=== PATIENT | female | born 1940 | race Caucasian/White ===

== ENCOUNTER 2017-08-22 10:28 | Outpatient (CLI) | payer MEDICARE, OTHER ==
[~2017-08-22] VITALS: Ht 167.6 cm; Wt 85.7 kg
[2017-08-22] MEDS ORDERED: METOLAZONE2.5 MG PO (11:13)
[2017-08-22] MEDS ORDERED: GLIMEPIRIDE1 MG ORAL (11:13)
[2017-08-22] MEDS ORDERED: FUROSEMIDE40 MG/5 ML ORAL (11:13)
[2017-08-22] MEDS ORDERED: OMEPRAZOLE20 M2 ORAL (11:13)
[2017-08-22] MEDS ORDERED: MIRTAZAPINE15 M3 ORAL (11:14)
[2017-08-22] MEDS ORDERED: LISINOPRIL5 MG ORAL (11:14)
[2017-08-22] MEDS ORDERED: CALCIUM600 M1 PO (11:14)
[2017-08-22] MEDS ORDERED: KLOR-CON20 MEQ ORAL (11:14)
[2017-08-22] MEDS ORDERED: MIRAPEX0.5 MG PO (11:14)
[2017-08-22] MEDS ORDERED: VENLAFAXINE HCL75 MG ORAL (11:14)
[2017-08-22] MEDS ORDERED: VITAMIN D35000 UNI2 PO (11:14)
[2017-08-22 11:17] VITALS: BP 139/103
--- NOTE | 2017-08-22 11:19 | GI Initial Consult Note ---
Jacqueline Buchananh Don N.P. 08/22/17 1119: History of Present Illness General Date patient seen: Aug 22, 2017 Time patient seen: 11:07 Referring physician: CHATA Reason for Consultation: EGD/EUS Present Illness HPI 76 year old female patient referred by Dr. Dominguez for EGD/EUS. The patient has a history of dysphagia with solid foods, dx with achalasia 5 years ago. Hx of botox treatment in [place]. He currently is pending a Heller Mytomy and requires an EUS, thus patient presents here today. His last EGD was 2 months ago. History of colonic polyps. No signs of abuse or neglect. Patient is not fall risk. Denies any unintentional weight loss or changes in dietary habits. Home Meds Reported Medications Mirtazapine* (MIRTAZAPINE*) 15 Mg Tablet, 45 MG ORAL BEDTIME, TAB 08/22/17 Pramipexole (MIRAPEX) 0.5 Mg Tablet, 1.5 MG GT, TAB 08/22/17 Cholecalciferol (Vitamin D3) (VITAMIN D3) 5,000 Unit Tablet, 5000 UNIT PO, TAB 08/22/17 Lisinopril (LISINOPRIL*) 5 Mg Tablet, 10 MG ORAL DAILY, TAB 08/22/17 Calcium Carbonate (CALCIUM) 600 Mg Tablet, 600 MG PO, TAB 08/22/17 Venlafaxine Hcl* (VENLAFAXINE HCL*) 75 Mg Tablet, 150 MG ORAL THREE TIMES A DAY , TAB 08/22/17 Potassium Chloride (KLOR-CON) 20 Meq Packet, 60 MEQ ORAL DAILY, #30 PKT 0 Refills 08/22/17 Metolazone (METOLAZONE) 2.5 Mg Tablet, 2.5 MG PO, TAB 08/22/17 Furosemide (FUROSEMIDE) 40 Mg/5 Ml Solution, 40 MG ORAL DAILY, ML 08/22/17 Glimepiride* (GLIMEPIRIDE*) 1 Mg Tablet, 2 MG ORAL BEFORE BREAKFAST, TAB 08/22/17 Omeprazole (OMEPRAZOLE) 20 Mg Capsule.dr, 20 MG ORAL DAILY, CAP 08/22/17 Allergies: Coded Allergies: SULFA (SULFONAMIDE ANTIBIOTICS) (Unverified Allergy, Severe, 08/22/17) Patient History History Provided By: Patient, Medical Record PMH Narrative Parkinson's Disease Achalasia DM HTN COPD / Sleep Apnea with CPAP Depression GERD Past Surgical History: Hysterectomy + ovary removal Cholecystectomy tonsillectomy Family History Narrative Mother >> multiple myeloma. Daughter >> vaginal CA Social History: Reports: smoking - quit 8 years, alcohol use - over 20 years Review of Systems All Other Systems: negative except mentioned in HPI Physical Exam T 99.1 BP 139/103 HR 108 97 RA Height 5'6 Weight 189 lbs Sp02 EP Interpretation: reviewed, normal General Appearance: well appearing, no apparent distress, alert Head: normocephalic EENT: PERRL/EOMI, normal ENT inspection Neck: supple Respiratory: normal breath sounds, no respiratory distress Cardiovascular: normal rate Gastrointestinal: normal inspection, non tender, soft, normal bowel sounds, non -distended Rectal: deferred Genitourinary: no CVA tenderness Musculoskeletal: normal inspection, back normal Neurologic: normal inspection, alert, oriented x3, responsive Psychiatric: normal inspection, judgement/insight normal, memory normal Skin: normal inspection, normal color, no rash, warm/dry, palpation normal, well hydrated Lymphatic: normal inspection, no adenopathy GI: Plan Problems: (1) Dysphagia (2) Achalasia (3) GERD (gastroesophageal reflux disease) (4) HTN (hypertension) (5) Parkinson disease (6) Diabetes mellitus (7) Depressed (8) COPD (chronic obstructive pulmonary disease) (9) Sleep apnea Plan EGD/EUS to be schedule 08/30/16. - NPO @ DC day prior procedure explained. will consider adding colonoscopy to procedure. cont ppi Seen with Dr. Lomax. Thank you for this patient referral. MACHELLE LOMAX 08/22/17 1223: History of Present Illness Present Illness Home Meds Reported Medications Mirtazapine* (MIRTAZAPINE*) 15 Mg Tablet, 45 MG ORAL BEDTIME, TAB 08/22/17 Pramipexole (MIRAPEX) 0.5 Mg Tablet, 1.5 MG GT, TAB 08/22/17 Cholecalciferol (Vitamin D3) (VITAMIN D3) 5,000 Unit Tablet, 5000 UNIT PO, TAB 08/22/17 Lisinopril (LISINOPRIL*) 5 Mg Tablet, 10 MG ORAL DAILY, TAB 08/22/17 Calcium Carbonate (CALCIUM) 600 Mg Tablet, 600 MG PO, TAB 08/22/17 Venlafaxine Hcl* (VENLAFAXINE HCL*) 75 Mg Tablet, 150 MG ORAL THREE TIMES A DAY , TAB 08/22/17 Potassium Chloride (KLOR-CON) 20 Meq Packet, 60 MEQ ORAL DAILY, #30 PKT 0 Refills 08/22/17 Metolazone (METOLAZONE) 2.5 Mg Tablet, 2.5 MG PO, TAB 08/22/17 Furosemide (FUROSEMIDE) 40 Mg/5 Ml Solution, 40 MG ORAL DAILY, ML 08/22/17 Glimepiride* (GLIMEPIRIDE*) 1 Mg Tablet, 2 MG ORAL BEFORE BREAKFAST, TAB 08/22/17 Omeprazole (OMEPRAZOLE) 20 Mg Capsule.dr, 20 MG ORAL DAILY, CAP 08/22/17 Allergies: Coded Allergies: SULFA (SULFONAMIDE ANTIBIOTICS) (Unverified Allergy, Severe, 08/22/17) GI: Plan Plan The patient was seen and examined at bedside and all new and available data was reviewed in the patients chart. I agree with the above findings, impression and plan. (Patient seen earlier today. Signature stamp does not reflect patient encounter time.). - MD Chanel Adan Anh Don NDebra Aug 22, 2017 11:19 MACHELLE LOMAX Aug 22, 2017 12:23
== END 2017-08-22 11:00 | disposition home or self-care (01) ==
LOC: PAN 10:28
DX: R13.10 Dysphagia, unspecified (principal); K22.0 Achalasia of cardia; K21.9 Gastro-esophageal reflux disease without esophagitis; I10 Essential (primary) hypertension; G20 Parkinson's disease; E11.9 Type 2 diabetes mellitus without complications; F32.9 Major depressive disorder, single episode, unspecified; J44.9 Chronic obstructive pulmonary disease, unspecified; G47.30 Sleep apnea, unspecified; Z86.010 Personal history of colon polyps; Z90.710 Acquired absence of both cervix and uterus; Z90.49 Acquired absence of other specified parts of digestive tract; Z90.721 Acquired absence of ovaries, unilateral; Z87.891 Personal history of nicotine dependence
CPT/HCPCS: 99201

== ENCOUNTER 2017-08-30 08:17 | Day surgery (SDC) | payer MEDICARE, OTHER ==
[~2017-08-30] VITALS: Ht 167.6 cm; Wt 83.9 kg
[2017-08-30] VITALS (8 sets, daily range): BP systolic 107–126; BP diastolic 58–78
[~2017-08-30 08:17] MED LIST: CALCIUM600 M1 PO; FUROSEMIDE40 MG/5 ML ORAL; GLIMEPIRIDE1 MG ORAL; KLOR-CON20 MEQ ORAL; LISINOPRIL5 MG ORAL; METOLAZONE2.5 MG PO; MIRAPEX0.5 MG PO; MIRTAZAPINE15 M3 ORAL; OMEPRAZOLE20 M2 ORAL; VENLAFAXINE HCL75 MG ORAL; VITAMIN D35000 UNI2 PO
--- NOTE | 2017-08-30 08:58 | Anethesia Preoperative Eval ---
Anesthesia Pre-op PMH/ROS General Date of Evaluation: Aug 30, 2017 Time of Evaluation: 09:34 Anesthesiologist: Karen ASA Score: ASA 2 Mallampati Score Class I : Soft palate, uvula, fauces, pillars visible Class II: Soft palate, uvula, fauces visible Class III: Soft palate, base of uvula visible Class IV: Only hard plate visible Mallampati Classification: Class III Surgeon: Kyleigh Diagnosis: Dysphegia, GERD Surgical Procedure: EGD/EUS Anesthesia History: none Social History: smoking - quit in 2009 Family History: no anesthesia problems Allergies: Coded Allergies: DIPYRIDAMOLE (Verified Allergy, Severe, 08/30/17) RESP DIFFICULTY SULFA (SULFONAMIDE ANTIBIOTICS) (Unverified Allergy, Severe, 08/22/17) Medications: see eMAR Past Medical History Cardiovascular: Reports: HTN Pulmonary: Reports: COPD, LILLIANA - uses CPAP Gastrointestinal/Genitourinary: Reports: GERD, other - colon polyps, achalasia Neurologic/Psychiatric: Reports: other - Parkinson's Disease Endocrine: Denies: DM, hypothyroidism, steroids, other HEENT: Denies: cataract (L), cataract (R), glaucoma, KIANA (L), KIANA (R), other Hematology/Immune: Denies: anemia, DVT, bleeding disorder, other Musculoskeletal/Integumentary: Reports: OA PSxH Narrative: hysterectomy, cholesystectomy, tonsillectomy Anesthesia Pre-op Phys. Exam Physician Exam Constitutional: NAD Neurologic: CN 2-12 intact Cardiovascular: RRR Respiratory: CTA, other - diminised at bases Gastrointestinal: S/NT/ND Airway Exam Mallampati Score: Class III MO: full ROM: full Teeth: missing Dentures: upper Anesthesia Pre-op A/P Labs chart reviewed Studies Pre-op Studies: EKG - NSR 79 BPM Risk Assessment & Plan Assessment: A&Ox4 Plan: MAC Status Change Before Surgery: No Pre-Antibiotics Given Within 1 Hr of Incision: No - none per surgeon Desiree Jones CRNA Aug 30, 2017 08:58
--- NOTE | 2017-08-30 08:59 | Immediate Post-Op Evaluation ---
Immediate Post-Op Evalulation Immediate Post-Op Evalulation Procedure: EGD/EUS Date of Evaluation: Aug 30, 2017 Time of Evaluation: 10:45 IV Fluids: NSS 700 ml Blood Products: 0 Estimated Blood Loss: 0 Urinary Output: 0 Blood Pressure Systolic: 122 Blood Pressure Diastolic: 74 Pulse Rate: 77 Respiratory Rate: 20 O2 Sat by Pulse Oximetry: 99 Temperature (Fahrenheit): 97.1 Pain Score (1-10): 0 Nausea: No Vomiting: No Patient Status: awake, reacts Hydration Status: adequate Given Within 1 Hr of Incision: Desiree Cuellar CRNA Aug 30, 2017 08:59
--- NOTE | 2017-08-30 09:24 | Pre-Procedure Note/Attestation ---
Pre-Procedure Note/Attestation Complete Prior to Procedure Planned Procedure: not applicable Procedure Narrative: EGD/EUS Indications for Procedure Pre-Operative Diagnosis: achalasia Attestation I attest that I discussed the nature of the procedure; its benefits; risks and complications; and alternatives (and the risks and benefits of such alternatives ), prior to the procedure, with the patient (or the patient's legal hvac sales representative). I attest that, if there was a reasonable possibility of needing a blood transfusion, the patient (or the patient's legal hvac sales representative) was given the [facility] standardized written summary, pursuant to the [place] Blood Safety Act ([place] Health and Safety Code # 1645, as amended). I attest that I re-evaluated the patient just prior to the surgery and that there has been no change in the patient's H&P, except as documented below: MACHELLE LOMAX Aug 30, 2017 09:24
--- NOTE | 2017-08-30 09:25 | Short Stay Surgery H&P ---
History of Present Illness History of Present Illness Chief Complaint see recent consult note HPI Radha Azar is a 76 year old female who was admitted on for Dysphegia,Gerd Patient History Allergies: Coded Allergies: DIPYRIDAMOLE (Verified Allergy, Severe, 08/30/17) RESP DIFFICULTY SULFA (SULFONAMIDE ANTIBIOTICS) (Unverified Allergy, Severe, 08/22/17) PAST MEDICAL HISTORY: Past Surgeries: Social History: Medication History Scheduled Furosemide (Furosemide), 40 MG ORAL DAILY, (Reported) Glimepiride* (Glimepiride*), 2 MG ORAL BEFORE BREAKFAST, (Reported) Lisinopril (Lisinopril*), 10 MG ORAL DAILY, (Reported) Mirtazapine* (Mirtazapine*), 45 MG ORAL BEDTIME, (Reported) Omeprazole (Omeprazole), 20 MG ORAL DAILY, (Reported) Potassium Chloride (Klor-Con), 60 MEQ ORAL DAILY, (Reported) Pramipexole (Mirapex), 1.5 MG PO DAILY, (Reported) Venlafaxine Hcl* (Venlafaxine Hcl*), 150 MG ORAL THREE TIMES A DAY, (Reported) Miscellaneous Medications Calcium Carbonate (Calcium), 600 MG PO, (Reported) Cholecalciferol (Vitamin D3) (Vitamin D3), 5,000 UNIT PO, (Reported) Metolazone (Metolazone), 2.5 MG PO, (Reported) Physical Exam Vital Signs Last Vital Signs Date Time Temp Pulse Resp B/P (MAP) Pulse Ox O2 Delivery O2 Flow Rate FiO2 08/30/17 09:13 98.1 82 20 126/73 97 Room Air Plan Attestation Are the patient's medical conditions optimized for surgery? MACHELLE LOMAX Aug 30, 2017 09:25
[2017-08-30] MEDS ORDERED: Heplock Flush 100 units/ml 3 ml syr ONE (10:00)
[2017-08-30] MEDS ORDERED: Sodium Chloride 10ml vial INJ ONE (10:10)
--- NOTE | 2017-08-30 10:43 | Endoscopy Procedure Note ---
Endoscopy Procedure Note Indication for Procedure: achalasia? Procedures Performed: EGD, other - EUS Operative Findings/Diagnosis: gastritis, gastric polyps Specimen: yes Pt Tolerated Procedure Well: Yes Estimated Blood Loss: none Anesthesiologist: cedrick Anesthesia: MAC Implant(s) used?: No 50 yrs or older w/o bx or poly: Not Applicable 10yrs. F/U not recommended: Not Applicable MACHELLE LOMAX Aug 30, 2017 10:43
--- NOTE | 2017-08-30 11:23 | 48 Hour Post Anesthesia Eval ---
Post Anesthesia Evaluation Procedure: EGD/EUS Date of Evaluation: Aug 30, 2017 Time of Evaluation: 11:00 Blood Pressure Systolic: 125 0: 70 Pulse Rate: 78 Respiratory Rate: 21 Temperature (Fahrenheit): 97.1 O2 Sat by Pulse Oximetry: 99 Airway: patent Nausea: No Vomiting: No Pain Intensity: 0 Hydration Status: adequate Mental Status/LOC: patient returned to baseline Post-Anesthesia Complications: none Follow-up care needed: patient intructions given Desiree Jones CRNA Aug 30, 2017 11:23
--- NOTE | 2017-09-01 12:55 | Procedure Note ---
DATE OF PROCEDURE: 08/30/2017 SURGEON: Donavan Arizmendi M.D. REFERRING PHYSICIAN: Dr. Falk. PROCEDURE: Endoscopic ultrasound with fine-needle aspiration and also esophagogastroduodenoscopy with biopsy. ANESTHESIA: Per Karen MACHADO. INSTRUMENT: Olympus adult flexible upper scope and EUS radial and linear scope. INDICATION: Questionable achalasia. The procedure, risks, benefits, and possible consequences including hemorrhage, aspiration, perforation and infection, and alternative treatments, were explained to the patient/legal guardian by Dr. Donavan Arizmendi and the patient/legal guardian understood and accepted these risks. DESCRIPTION OF PROCEDURE: After informed consent was obtained and the patient was adequately sedated, first, EUS radial scope was introduced into the esophagus. At around 35 cm from the incisors, we a little bit of resistance for the scope to get through and then at that area, we saw 2 lymph nodes, actually one for sure a 7-mm lymph node. There was another structure, hyperechoic, measured 2.1 x 1.1 cm. This lesion was outside of the wall of the esophagus. It was basically between the esophagus and the liver, very close to the liver and esophagus, just at the space between these two organs outside the wall of the esophagus, this was possible malignancy. There was no evidence of any obvious celiac axis lymphadenopathy. At this time, the EUS radial scope was removed and linear scope was introduced using a 25-gauge core needle. We did 3 passes to this 2.1 cm lesion. One pass was sent for cytology for lymphoma and the other two were sent just for the slide review. Then at this time, the EUS scope was removed and EGD scope was introduced. The Z-line was seen at about 35 cm from the incisors. Just about 0.5 cm above the Z-line, there was a little bit of circumferential luminal narrowing. No obvious bleeding. No obvious mass. This was most probably where the area we felt to be resistant and we did a biopsy of this area. Then, the scope was advanced into the stomach. The patient had multiple polyps, most probably fundic gland polyps, which were not biopsied. At this time, the upper endoscope was retrieved and procedure was terminated. SUMMARY OF FINDINGS: 1. Z-line at 35 cm from the incisors. 2. Circumferential luminal narrowing at 0.5 cm above the Z-line. 3. Multiple gastric polyps, most probably fundic gland polyps. 4. A 2.1 x 1.1 cm structure between the esophageal wall and liver at about 35 cm from the incisors, suspicious for mostly lymph nodes versus malignancy, which was fine-needle aspirated x3. 5. A 7-mm periesophageal lymph node right around the same area as above. RECOMMENDATION: Follow FNA results and biopsy results and treat accordingly. I want to thank Dr. Falk for this kind referral. Evelyn Telles JOB#: [id number] CC: Evelyn Falk
--- NOTE | 2017-09-03 17:02 | Cardiology Report ---
APPROVED REPORT EKG Measurement Heart [id number] Normal sinus rhythm Normal ECG
== END 2017-08-30 12:10 | disposition home or self-care (01) ==
LOC: GAS 08:17
DX: K22.0 Achalasia of cardia (principal); Z87.891 Personal history of nicotine dependence; I10 Essential (primary) hypertension; J44.9 Chronic obstructive pulmonary disease, unspecified; G47.33 Obstructive sleep apnea (adult) (pediatric); K21.9 Gastro-esophageal reflux disease without esophagitis; Z86.010 Personal history of colon polyps; Z90.710 Acquired absence of both cervix and uterus; Z90.49 Acquired absence of other specified parts of digestive tract; Z88.2 Allergy status to sulfonamides
CPT/HCPCS: 43239; 43242; 82378; 82962; 93005; J1642; 94003; 94150